=== PATIENT | male | born 1940 | race Caucasian/White ===

== ENCOUNTER 2020-07-23 10:55 | Observation (INO) | payer MEDICARE ==
[2020-07-23] MEDS ORDERED: Sodium Chloride 0.9% 2.5 ML Syringe FLUSH PRN (10:57)
[2020-07-23] MEDS ORDERED: Sodium Chloride 0.9% 10 ML Syringe FLUSH PRN (10:57)
--- NOTE | 2020-07-23 11:01 | EDM.PDOC ---
ED HPI GENERAL MEDICAL PROBLEM - General Chief Complaint: Neuro Symptoms/Deficits Stated Complaint: EMS ARRIVAL Time Seen by Provider: 07/23/20 10:56 Source of Information: Reports: Patient, EMS History Limitations: Reports: No Limitations - History of Present Illness INITIAL COMMENTS - FREE TEXT/NARRATIVE: History of present illness: [Patient is 80-year-old male presents by EMS for concern of possible stroke/TIA. Patient states that when he woke up this morning he was feeling fine around 9 AM he got up from his chair to walk towards the kitchen and he felt very imbalanced, he got to the kitchen and sat down and took a drink of water, thought he was feeling better, tried to continue with his morning and then felt like he had slurred speech and right-sided weakness including a little bit of right facial droop right arm and right leg weakness. He estimates the symptoms lasted about 10 minutes and then resolve spontaneously. He has no previous history of stroke or TIA. States that he has a history of previous kidney cancer status post resection, neck cancer in remission, lung cancer also in remission. Denies chest pain or shortness of breath. Denies fever chills. Denies headache or blurry vision. Denies any new medications or drug use. States he is currently asymptomatic and back to baseline.] Review of systems: As per history of present illness and below otherwise all systems reviewed and negative. Past medical history: As per history of present illness and as reviewed below otherwise noncontributory. Surgical history: As per history of present illness and as reviewed below otherwise noncontributory. Social history: No reported history of drug or alcohol abuse. Family history: As per history of present illness and as reviewed below otherwise noncontributory. Physical exam: General: Awake, alert, no acute distress, A&O X3. HEENT: Atraumatic, normocephalic, pupils reactive, negative for conjunctival pallor or scleral icterus, mucous membranes moist, throat clear, neck supple, nontender, trachea midline. Lungs: Clear to auscultation, breath sounds equal bilaterally, chest nontender. Heart: RRR, normal S1S2, no JVD. Abdomen: Soft, nondistended, nontender. Negative for masses or hepatosplenomegaly. Negative for costovertebral tenderness. Pelvis: Stable nontender. Genitourinary: Deferred. Rectal: Deferred. Extremities: Atraumatic, no edema, Neurovascular unremarkable. Neuro: Motor and sensory grossly intact throughout. Exam nonfocal. NIH 0. Diagnostics: [] Therapeutics: [] Impression: [] Plan: [] Definitive disposition and diagnosis as appropriate pending reevaluation and review of above. - Related Data Allergies Allergy/AdvReac Type Severity Reaction Status Date / Time meperidine [From Demerol] Allergy Other Verified 07/23/20 16:08 Home Meds: Home Meds Glucosam/Chond/Collagen/Hyalur [Glucosamine Chondroitin] 1 tab PO BID 07/23/20 [History] Multivit-Min/Folic/Vit K/Lycop [Men's Multivitamin Tablet] 1 each PO BEDTIME 07/23/20 [History] PARoxetine [Paxil] 20 mg PO DAILY 07/23/20 [History] atorvaSTATin Calcium [Atorvastatin Calcium] 40 mg PO DAILY 07/23/20 [History] ED ROS GENERAL - Review of Systems Review Of Systems: Comprehensive ROS is negative, except as noted in HPI. ED EXAM, NEURO - Physical Exam Exam: See Below (see h and p) #1 Interpretation EKG Date: 07/23/20 Time: 11:08 Rhythm: NSR Rate (Beats/Min): 73 [place]: Normal P-Wave: Present QRS: Normal ST-T: Normal QT: Normal RI/PQ Interval: 1st degree av block Course - Vital Signs Last Recorded V/S: Last Vital Signs Temp 36.4 C 07/23/20 16:04 Pulse 73 07/23/20 16:04 Resp 14 07/23/20 16:04 BP 167/73 H 07/23/20 16:04 Pulse Ox 96 07/23/20 16:04 - Orders/Labs/Meds Orders: Active Orders 24 hr Category Date Time Status Patient Status [ADT] Routine ADT 07/23/20 12:37 Active Sodium Chloride 0.9% [Saline Flush] Med 07/23/20 10:57 Active 10 ml FLUSH ASDIRECTED PRN Sodium Chloride 0.9% [Saline Flush] Med 07/23/20 10:57 Active 2.5 ml FLUSH ASDIRECTED PRN Saline Lock Insert [OM.PC] Stat Oth 07/23/20 10:57 Ordered Medication Orders Sodium Chloride (Saline Flush) 10 ml FLUSH ASDIRECTED PRN PRN Reason: Keep Vein Open Sodium Chloride (Saline Flush) 2.5 ml FLUSH ASDIRECTED PRN PRN Reason: Keep Vein Open Labs: Laboratory Tests 07/23/20 07/23/20 07/23/20 Range/Units 11:16 11:16 11:16 WBC 6.83 (4.0-11.0) K/uL RBC 4.81 (4.50-5.90) M/uL Hgb 15.0 (13.0-17.0) g/dL Hct 45.3 (38.0-50.0) % MCV 94.2 (80.0-98.0) fL MCH 31.2 (27.0-32.0) pg MCHC 33.1 (31.0-37.0) g/dL RDW Std Deviation 48.4 (28.0-62.0) fl RDW Coeff of Thony 14 (11.0-15.0) % Plt Count 220 (150-400) K/uL MPV 10.90 (7.40-12.00) fL Neut % (Auto) 73.9 (48.0-80.0) % Lymph % (Auto) 16.5 (16.0-40.0) % [place] % (Auto) 9.2 (0.0-15.0) % Eos % (Auto) 0.3 (0.0-7.0) % Baso % (Auto) 0.1 (0.0-1.5) % Neut # (Auto) 5.0 (1.4-5.7) K/uL Lymph # (Auto) 1.1 (0.6-2.4) K/uL [place] # (Auto) 0.6 (0.0-0.8) K/uL Eos # (Auto) 0.0 (0.0-0.7) K/uL Baso # (Auto) 0.0 (0.0-0.1) K/uL Nucleated RBC % 0.0 /100WBC Nucleated RBCs # 0 K/uL INR 1.01 APTT 27.2 (18.6-31.3) SEC Sodium 142 (136-148) mmol/L Potassium 4.5 (3.5-5.1) mmol/L Chloride 108 H (98-107) mmol/L Carbon Dioxide 24.4 (21.0-32.0) mmol/L BUN 19 H (7.0-18.0) mg/dL Creatinine 1.2 (0.8-1.3) mg/dL Est Cr Clr Drug Dosing 59.66 mL/min Estimated GFR (MDRD) 58.4 ml/min Glucose 112 H (74-106) mg/dL Calcium 9.2 (8.5-10.1) mg/dL Total Bilirubin 0.7 (0.2-1.0) mg/dL AST 22 (15-37) IU/L ALT 29 (14-63) IU/L Alkaline Phosphatase 119 H (46-116) U/L Troponin I < 0.050 (0.000-0.056) ng/mL Total Protein 7.4 (6.4-8.2) g/dL Albumin 3.6 (3.4-5.0) g/dL Globulin 3.8 (2.6-4.0) g/dL Albumin/Globulin Ratio 0.9 (0.9-1.6) Meds: Medications Generic Name Dose Route Start Last Admin Trade Name Freq PRN Reason Stop Dose Admin Sodium Chloride 10 ml 07/23/20 10:57 Saline Flush FLUSH ASDIRECTED PRN Keep Vein Open Sodium Chloride 2.5 ml 07/23/20 10:57 Saline Flush FLUSH ASDIRECTED PRN Keep Vein Open Discontinued Medications Generic Name Dose Route Start Last Admin Trade Name Freq PRN Reason Stop Dose Admin Aspirin 325 mg 07/23/20 12:33 07/23/20 13:35 Aspirin PO 07/23/20 12:34 325 mg ONETIME ONE Administration Iopamidol 100 ml 07/23/20 11:43 07/23/20 11:45 Isovue Multipack-370 (76%) IVPUSH 07/23/20 11:44 100 ml ONETIME ONE Administration Departure - Departure Time of Disposition: 14:00 Disposition: Admitted As Inpatient 67 Condition: Good Clinical Impression: TIA (transient ischemic attack) - Discharge Information Sepsis Event Note (ED) - Focused Exam Vital Signs: Vital Signs Temp Pulse Resp BP Pulse Ox 07/23/20 12:30 79 18 154/79 H 95 07/23/20 11:30 74 17 154/79 H 95 07/23/20 11:01 36.7 C 76 16 148/123 H 97 - My Orders Last 24 Hours: My Active Orders 07/23/20 10:57 Sodium Chloride 0.9% [Saline Flush] 10 ml FLUSH ASDIRECTED PRN Sodium Chloride 0.9% [Saline Flush] 2.5 ml FLUSH ASDIRECTED PRN Saline Lock Insert [OM.PC] Stat 07/23/20 12:37 Patient Status [ADT] Routine - Assessment/Plan Last 24 Hours: My Active Orders 07/23/20 10:57 Sodium Chloride 0.9% [Saline Flush] 10 ml FLUSH ASDIRECTED PRN Sodium Chloride 0.9% [Saline Flush] 2.5 ml FLUSH ASDIRECTED PRN Saline Lock Insert [OM.PC] Stat 07/23/20 12:37 Patient Status [ADT] Routine Assessment:: Patient has remained asymptomatic since arrival here. CT of the head including CTA of head and neck as well are negative for any acute signs of stroke or blockage. Patient will be admitted, received aspirin here in the ER, will likely have neurology consult in the morning and potentially MRI tomorrow. Symptoms appear to be consistent with TIA. They lasted 10 minutes, resolved spontaneously, he has been asymptomatic since. Covid negative, remainder the labs are reassuring. Stable at time of admission
[2020-07-23] MEDS ORDERED: Iopamidol 755 MG/ML 500 ML Multipack Bottle IVPUSH ONE (11:43)
[2020-07-23 11:45] LABS: BLOOD UREA NITROGEN,BUN 19 mg/dL (7.0-18.0); CARBON DIOXIDE,CO2 24.4 mmol/L (21.0-32.0); CHLORIDE,CL 108 mmol/L (98-107); GLUCOSE RANDOM 112 mg/dL (74-106); POTASSIUM,K 4.5 mmol/L (3.5-5.1); SODIUM,NA 142 mmol/L (136-148)
--- NOTE | 2020-07-23 12:18 | CR ---
INDICATION: Stroke symptoms. TECHNIQUE: AP portable chest. COMPARISON : None. FINDINGS: Shallow inspiration. Curvilinear opacity left upper lobe laterally. This may reflect fibrosis or atelectasis in the proper setting but will require followup to complete radiographic resolution. Clear right lung. Overall heart size is normal. The included skeleton is unremarkable. IMPRESSION: Curvilinear opacity left upper lobe for which radiographic follow-up is recommended when the clinical picture allows. No evidence for pneumothorax or congestive heart failure. Dictated by Gregg Montanez MD @ Jul 23 2020 12:15PM Signed by Dr. Gregg Montanez @ Jul 23 2020 12:16PM
--- NOTE | 2020-07-23 12:20 | CT ---
DATE: 07/23/2020. CLINICAL HISTORY: Patient with acute neurological deficit. TECHNIQUE: Standard helical CT image acquisition through the head and neck was performed after intravenous contrast bolus enhancement. Multiplanar reconstructed images were performed and interpreted. COMPARISON: None available. FINDINGS: The origins of the great vessels from the aortic arch are patent. The origins of the right and left vertebral arteries are patent. The common carotid arteries are patent. There is calcified and noncalcified atherosclerotic plaque involving the carotid bifurcations and extending into the carotid bulbs bilaterally with resulting moderate luminal stenosis of the proximal right internal carotid artery (50-60 percent stenosis by NASCET criteria) and mild luminal stenosis of the proximal left internal carotid artery (less than 50 percent stenosis by NASCET criteria). Note is made of dilatation of the right greater than left carotid bulbs, measuring up to 15 mm in luminal diameter on the right and likely related to prior endarterectomy. The rest of the cervical segments of the internal carotid arteries are patent up to their intracranial segments. 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 The intracranial segments of the internal carotid arteries are patent, noting marked atherosclerotic calcification throughout the cavernous and supraclinoid segments with resulting very mild luminal stenosis of the supraclinoid internal carotid arteries bilaterally. 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 The anterior and middle cerebral arteries are patent. The vertebral arteries are codominant. The cervical segments of the vertebral arteries are patent. The intracranial segments of the vertebral arteries are patent, noting calcified and noncalcified atherosclerotic plaque involving the intracranial left vertebral artery but without resulting flow-limiting luminal stenosis. The basilar trunk and posterior cerebral arteries are patent. Moderate short segment luminal stenosis of the mid to distal basilar trunk secondary to noncalcified atherosclerotic plaque. There is normal opacification of major intracranial venous structures. The visualized lung apices are unremarkable The thyroid gland is unremarkable. There are degenerative changes in the cervical spine. IMPRESSION: 1. Multifocal intracranial atherosclerotic disease, involving both the anterior and posterior circulation, may most pronounced involving the mid distal basilar trunk with moderate luminal stenosis. 2. Findings suggestive of prior right carotid endarterectomy and possibly left carotid endarterectomy with atherosclerosis resulting in moderate luminal stenosis of the proximal right internal carotid artery (50-60 percent stenosis by NASCET criteria) and mild luminal stenosis of the proximal left internal carotid artery (less than 50 percent stenosis by NASCET criteria). 3. 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 Our Neurointerventional Service at [facility] would be happy to enroll this patient in our aneurysm surveillance program. Please call [phone] to arrange for a telehealth consultation. Please note that all CT scans at this facility use dose modulation, iterative reconstruction, and/or weight-based dosing when appropriate to reduce radiation dose to as low as reasonably achievable. Dictated by Gilmer Vuong MD @ Jul 23 2020 3:27PM Signed by Dr. Gilmer Vuong @ Jul 23 2020 3:43PM
--- NOTE | 2020-07-23 12:22 | CT ---
INDICATION: Stroke-like symptoms. TECHNIQUE: CT of the head without contrast. Coronal and sagittal reformats are included. COMPARISON: None. FINDINGS: No CT evidence of acute cortical infarct. No loss of kline white matter differentiation. No hyperdense vessels to suggest intracranial thrombus. No acute intracranial hemorrhage. No mass effect or midline shift. No hydrocephalus or extra-axial collections. Mild to moderate generalized parenchymal volume loss. Patchy white matter hypoattenuation most likely reflects chronic microvascular ischemic changes. Small chronic lacunar infarcts within the bilateral basal ganglia. No acute osseous abnormalities. Mastoid air cells and paranasal sinuses are clear. Normal soft tissues. IMPRESSION: 1. No CT evidence of acute cortical infarct. No acute intracranial hemorrhage. No other acute intracranial findings. 2. Chronic atrophic/age-related changes. Please note that all CT scans at this facility use dose modulation, iterative reconstruction, and/or weight-based dosing when appropriate to reduce radiation dose to as low as reasonably achievable. Dictated by Isaiah Arenas MD @ Jul 23 2020 12:10PM Signed by Dr. Isaiah Arenas @ Jul 23 2020 12:21PM
[2020-07-23] MEDS ORDERED: Aspirin 325 MG Tab PO ONE (12:33)
[2020-07-23] MEDS ORDERED: Ondansetron 4 MG Tab.DIS PO PRN (17:39)
[2020-07-23] MEDS ORDERED: Acetaminophen 325 MG Tab PO PRN (17:39)
[2020-07-23] MEDS ORDERED: atorvaSTATin 40 MG Tab PO ONE (17:53)
[2020-07-23] MEDS ORDERED: Enoxaparin 40 MG/0.4 ML Syringe SUBCUT SCH (18:00)
[2020-07-23 18:18] LABS: HEMOGLOBIN A1C 6.1 % (4.5-6.2)
--- NOTE | 2020-07-23 18:24 | PCM.HP.2 ---
<Jane Dominguez - Last Filed: 07/23/20 18:24> H&P History of Present Illness - General Date of Service: 07/23/20 Admit Problem/Dx: Admission Diagnosis/Problem Admission Diagnosis/Problem TIA, Transient ischemic attack Source of Information: Patient History Limitations: Reports: No Limitations - History of Present Illness Initial Comments - Free Text/Narative: Patient is 80-year-old Gentleman who presented via EMS for concern of possible stroke/TIA. Patient shared that at around 9 AM this morning he got up from his chair to walk towards the kitchen and he felt imbalanced. At this time he felt weakness in the right side of his face, right arm and leg. During this time he recalls feeling an onset of headache behind his left eye, along with some s lurring in his speech. He denies having had this before, states the episode last approx 10 minutes and then spontaneously resolved. He did not try taking anything for symptom relief and denies any alleviating or aggravating factors. 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 States that he has a history of previous kidney cancer status post resection, neck cancer in remission, lung cancer also in remission. Denies chest pain or shortness of breath. Denies fever chills. Denies headache or blurry vision. Denies any new medications or drug use. States he is currently asymptomatic and back to baseline.] Onset of Symptoms: Reports: Today Duration of Symptoms: Reports: Minutes:, Resolved Prior to Arrival Location: Reports: Head, Upper Extremity, Right, Lower Extremity, Right Severity: Mild Improves with: Reports: None Worsens with: Reports: None Context: Denies: Sick Contact, Travel Associated Symptoms: Reports: Headaches (headache for 10 minutes during episode behind left eye) - Related Data Allergies/Adverse Reactions: Allergies Allergy/AdvReac Type Severity Reaction Status Date / Time meperidine [From Demerol] Allergy Other Verified 07/23/20 16:08 Home Medications: Home Meds Glucosam/Chond/Collagen/Hyalur [Glucosamine Chondroitin] 1 tab PO BID 07/23/20 [History] Multivit-Min/Folic/Vit K/Lycop [Men's Multivitamin Tablet] 1 each PO BEDTIME 1 09/22/19 [History] PARoxetine [Paxil] 20 mg PO DAILY 07/23/20 [History] Acetaminophen [Tylenol] 650 mg PO Q4H PRN tablet 07/24/20 [Rx] Aspirin [Halfprin] 81 mg PO DAILY 30 Days #30 tab.ec 07/24/20 [Rx] amLODIPine [Norvasc] 5 mg PO DAILY 30 Days #30 tablet 07/24/20 [Rx] atorvaSTATin [Lipitor] 80 mg PO DAILY 30 Days #30 tablet 07/24/20 [Rx] Past Medical History Oncologic (Cancer) History: Reports: Lung, Other (See Below) Other Oncologic History: Throat, kidney. CLL - Past Surgical History HEENT Surgical History: Reports: Oral Surgery Other HEENT Surgeries/Procedures: Radiation, chemotherapy, throat cancer. Other Respiratory Surgeries/Procedures: Lung Cancer with radiation. GI Surgical History: Reports: Appendectomy Other Male Surgeries/Procedures: Right kidney removal. Other Oncologic Surgeries/Procedures: CLL cancer Social & Family History - Family History Family Medical History: No Pertinent Family History - Tobacco Use Tobacco Use Status *Q: Never Tobacco User Used Tobacco, but Quit: Yes Month/Year Tobacco Last Used: 1989 Second Hand Smoke Exposure: No - Caffeine Use Caffeine Use: Reports: Coffee - Recreational Drug Use Recreational Drug Use: No H&P Review of Systems - Review of Systems: Review Of Systems: Comprehensive ROS is negative, except as noted in HPI. General: Reports: No Symptoms HEENT: Reports: No Symptoms Pulmonary: Reports: No Symptoms Cardiovascular: Reports: No Symptoms Gastrointestinal: Reports: No Symptoms Genitourinary: Reports: No Symptoms Musculoskeletal: Reports: No Symptoms Skin: Reports: No Symptoms Psychiatric: Reports: No Symptoms Neurological: Reports: No Symptoms Hematologic/Lymphatic: Reports: No Symptoms Exam - Exam Exam: See Below - Vital Signs Vital Signs: Last Vital Signs Temp 97.6 F 07/23/20 16:04 Pulse 73 07/23/20 16:04 Resp 14 07/23/20 16:04 BP 167/73 H 07/23/20 16:04 Pulse Ox 96 07/23/20 16:04 Weight: 105.778 kg - Exam General: Alert, Oriented, Cooperative HEENT: Conjunctiva Clear, EOMI, Hearing Intact, Mucosa Moist & [place], Pupils Equal, Pupils Reactive, PERRLA Neck: Supple, Trachea Midline, JVD. No: Lymphadenopathy Lungs: Clear to Auscultation, Normal Respiratory Effort Cardiovascular: Regular Rate, Regular Rhythm, Normal S1, Normal S2 GI/Abdominal Exam: Normal Bowel Sounds, Soft, Non-Tender, No Organomegaly, No Distention, No Abnormal Bruit, No Mass Extremities: Normal Inspection, Normal Range of Motion, No Pedal Edema, Normal Capillary Refill Peripheral Pulses: 2+: Radial (L), Radial (R), Dorsalis Pedis (L), Dorsalis Pedis (R) Skin: Warm, Dry, Intact Neurological: Cranial Nerves Intact, Reflexes Equal Bilateral, Strength Equal Bilateral, Normal Speech, Normal Tone, Sensation Intact. No: Focal Deficit, Babinski, Hyperreflexia, Hyporeflexia, Clonus Neuro Extensive - Mental Status: Alert, Oriented x3, Normal Mood/Affect, Normal Cognition, Memory Intact Neuro Extensive - Motor, Sensory, Reflexes: CN II-XII Intact, Normal Gait, Normal Reflexes. No: Ataxia, Tongue Deviation (L), Tongue Deviation (R), Dy sarthria, Receptive Aphasia, Expressive Aphasia, Total Aphasia, Facial palsy (L), Facial Palsy (R), Facial Palsy w Forehead, Hemeplagia (R), Hemeplagia (L), Pronator Drift (R), Pronator Drift (L), Abnormal Romberg, Abnormal Finger to Nose, Abnormal Heel to Pérez, Abnormal Light Touch, Abnormal Motor, Abnormal Pin Prick, Abn 2 Pt Discrimination, Tremor DTR: 2+: Bicep (L), Bicep (R), Tricep (L), Tricep (R), Patella (L), Patella (R), Achilles (L), Achilles (R) Psychiatric: Alert, Normal Affect, Normal Mood - Patient Data Lab Results Last 24 hrs: Laboratory Results - last 24 hr 07/23/20 07/23/20 07/23/20 Range/Units 11:16 11:16 11:16 WBC 6.83 (4.0-11.0) K/uL RBC 4.81 (4.50-5.90) M/uL Hgb 15.0 (13.0-17.0) g/dL Hct 45.3 (38.0-50.0) % MCV 94.2 (80.0-98.0) fL MCH 31.2 (27.0-32.0) pg MCHC 33.1 (31.0-37.0) g/dL RDW Std Deviation 48.4 (28.0-62.0) fl RDW Coeff of Thony 14 (11.0-15.0) % Plt Count 220 (150-400) K/uL MPV 10.90 (7.40-12.00) fL Neut % (Auto) 73.9 (48.0-80.0) % Lymph % (Auto) 16.5 (16.0-40.0) % Sullivan % (Auto) 9.2 (0.0-15.0) % Eos % (Auto) 0.3 (0.0-7.0) % Baso % (Auto) 0.1 (0.0-1.5) % Neut # (Auto) 5.0 (1.4-5.7) K/uL Lymph # (Auto) 1.1 (0.6-2.4) K/uL Sullivan # (Auto) 0.6 (0.0-0.8) K/uL Eos # (Auto) 0.0 (0.0-0.7) K/uL Baso # (Auto) 0.0 (0.0-0.1) K/uL Nucleated RBC % 0.0 /100WBC Nucleated RBCs # 0 K/uL INR 1.01 APTT 27.2 (18.6-31.3) SEC Sodium 142 (136-148) mmol/L Potassium 4.5 (3.5-5.1) mmol/L Chloride 108 H (98-107) mmol/L Carbon Dioxide 24.4 (21.0-32.0) mmol/L BUN 19 H (7.0-18.0) mg/dL Creatinine 1.2 (0.8-1.3) mg/dL Est Cr Clr Drug Dosing 59.66 mL/min Estimated GFR (MDRD) 58.4 ml/min Glucose 112 H (74-106) mg/dL Calcium 9.2 (8.5-10.1) mg/dL Total Bilirubin 0.7 (0.2-1.0) mg/dL AST 22 (15-37) IU/L ALT 29 (14-63) IU/L Alkaline Phosphatase 119 H (46-116) U/L Troponin I < 0.050 (0.000-0.056) ng/mL Total Protein 7.4 (6.4-8.2) g/dL Albumin 3.6 (3.4-5.0) g/dL Globulin 3.8 (2.6-4.0) g/dL Albumin/Globulin Ratio 0.9 (0.9-1.6) SARS-CoV-2 RNA (MONALISA) (NEGATIVE) 07/23/20 Range/Units 13:20 WBC (4.0-11.0) K/uL RBC (4.50-5.90) M/uL Hgb (13.0-17.0) g/dL Hct (38.0-50.0) % MCV (80.0-98.0) fL MCH (27.0-32.0) pg MCHC (31.0-37.0) g/dL RDW Std Deviation (28.0-62.0) fl RDW Coeff of Thony (11.0-15.0) % Plt Count (150-400) K/uL MPV (7.40-12.00) fL Neut % (Auto) (48.0-80.0) % Lymph % (Auto) (16.0-40.0) % Sullivan % (Auto) (0.0-15.0) % Eos % (Auto) (0.0-7.0) % Baso % (Auto) (0.0-1.5) % Neut # (Auto) (1.4-5.7) K/uL Lymph # (Auto) (0.6-2.4) K/uL Sullivan # (Auto) (0.0-0.8) K/uL Eos # (Auto) (0.0-0.7) K/uL Baso # (Auto) (0.0-0.1) K/uL Nucleated RBC % /100WBC Nucleated RBCs # K/uL INR APTT (18.6-31.3) SEC Sodium (136-148) mmol/L Potassium (3.5-5.1) mmol/L Chloride (98-107) mmol/L Carbon Dioxide (21.0-32.0) mmol/L BUN (7.0-18.0) mg/dL Creatinine (0.8-1.3) mg/dL Est Cr Clr Drug Dosing mL/min Estimated GFR (MDRD) ml/min Glucose (74-106) mg/dL Calcium (8.5-10.1) mg/dL Total Bilirubin (0.2-1.0) mg/dL AST (15-37) IU/L ALT (14-63) IU/L Alkaline Phosphatase (46-116) U/L Troponin I (0.000-0.056) ng/mL Total Protein (6.4-8.2) g/dL Albumin (3.4-5.0) g/dL Globulin (2.6-4.0) g/dL Albumin/Globulin Ratio (0.9-1.6) SARS-CoV-2 RNA (MONALISA) NEGATIVE (NEGATIVE) Result Diagrams: 07/23/20 11:16 07/23/20 11:16 Sepsis Event Note - Evaluation Sepsis Screening Result: No Definite Risk - Focused Exam Vital Signs: Vital Signs Temp Pulse Resp BP Pulse Ox 07/23/20 16:04 97.6 F 73 14 167/73 H 96 07/23/20 15:15 77 17 120/61 94 L 07/23/20 14:45 77 17 140/76 94 L 07/23/20 12:30 79 18 154/79 H 95 07/23/20 11:30 74 17 154/79 H 95 07/23/20 11:01 98.1 F 76 16 148/123 H 97 - Problem List (1) TIA (transient ischemic attack) SNOMED Code(s): 519288699 ICD Code: G45.9 - TRANSIENT CEREBRAL ISCHEMIC ATTACK, UNSPECIFIED Status: Acute Problem List Initiated/Reviewed/Updated: Yes Orders Last 24hrs: Active Orders 24 hr Category Date Time Status Patient Status [ADT] Routine ADT 07/23/20 12:37 Active Neuro Check [RC] Q4HR Care 07/23/20 18:10 Ordered Oxygen Therapy [RC] PRN Care 07/23/20 17:37 Active Oxygen Therapy [RC] PRN Care 07/23/20 17:45 Active VTE/DVT Education [RC] PER UNIT ROUTINE Care 07/23/20 17:37 Active VTE/DVT Education [RC] PER UNIT ROUTINE Care 07/23/20 17:45 Active Vital Signs [RC] Q4H Care 07/23/20 17:37 Active Vital Signs [RC] Q4H Care 07/23/20 17:45 Active Heart Healthy Diet [DIET] Diet 07/23/20 Dinner Active CBC WITH AUTO DIFF [HEME] AM Lab 07/24/20 05:11 Ordered CBC WITH AUTO DIFF [HEME] AM Lab 07/25/20 05:11 Ordered CBC WITH AUTO DIFF [HEME] AM Lab 07/26/20 05:11 Ordered CBC WITH AUTO DIFF [HEME] AM Lab 07/27/20 05:11 Ordered COMPREHENSIVE METABOLIC PN,CMP [CHEM] AM Lab 07/24/20 05:11 Ordered COMPREHENSIVE METABOLIC PN,CMP [CHEM] AM Lab 07/25/20 05:11 Ordered COMPREHENSIVE METABOLIC PN,CMP [CHEM] AM Lab 07/26/20 05:11 Ordered COMPREHENSIVE METABOLIC PN,CMP [CHEM] AM Lab 07/27/20 05:11 Ordered GLYCOSYLATED HEMOGLOBIN,HGBA1C [CHEM] Routine Lab 07/23/20 11:16 Received LIPID PANEL [CHEM] AM Lab 07/24/20 05:11 Ordered MAGNESIUM [CHEM] AM Lab 07/24/20 05:11 Ordered PHOSPHORUS [CHEM] AM Lab 07/24/20 05:11 Ordered UA RFX WILLOW AND CULT IF INDIC [URIN] Urgent Lab 07/23/20 17:39 Ordered Acetaminophen [TylenoL] Med 07/23/20 17:39 Active 650 mg PO Q4H PRN Aspirin [Halfprin] Med 07/24/20 09:00 Active 81 mg PO DAILY Ondansetron [Zofran ODT] Med 07/23/20 17:39 Active 4 mg PO Q4H PRN PARoxetine [Paxil] Med 07/24/20 09:00 Pending 20 mg PO DAILY Sodium Chloride 0.9% [Saline Flush] Med 07/23/20 10:57 Active 10 ml FLUSH ASDIRECTED PRN Sodium Chloride 0.9% [Saline Flush] Med 07/23/20 10:57 Active 2.5 ml FLUSH ASDIRECTED PRN atorvaSTATin [Lipitor] Med 07/24/20 09:00 Ordered 80 mg PO DAILY Saline Lock Insert [OM.PC] Stat Oth 07/23/20 10:57 Ordered Resuscitation Status Routine Resus Stat 07/23/20 17:37 Ordered Medication Orders Acetaminophen (Tylenol) 650 mg PO Q4H PRN PRN Reason: Pain (Mild 1-3)/fever Aspirin (Halfprin) 81 mg PO DAILY MARIANN Atorvastatin Calcium (Lipitor) 80 mg PO DAILY MARIANN Ondansetron HCl (Zofran Odt) 4 mg PO Q4H PRN PRN Reason: nausea, able to take PO Paroxetine HCl (Paxil) 20 mg PO DAILY MARIANN Sodium Chloride (Saline Flush) 10 ml FLUSH ASDIRECTED PRN PRN Reason: Keep Vein Open Sodium Chloride (Saline Flush) 2.5 ml FLUSH ASDIRECTED PRN PRN Reason: Keep Vein Open Assessment/Plan Comment:: 80 y/o Rosalina with PMHx of various cancers that have been treated, previous Rt sided Endarterectomy, Fam hx of [place] in his sister, and on medication for HLD and depression. Is being treated for TIA. 1.TIA: -given 325 Aspirin in E.R, symptoms resolved, all imaging negative for intracranial hemorrhage/ mass. Will start on 81mg ASA daily, 80mg Atorvastatin daily, and consider HTN medication based on BP monitoring tonight and tomorrow. -CT Head- No acute intracranial hemorrhage, no mass lesion. -CTA Head- multifocal intracranial atherosclerotic disease in both ant/ post circ. Bilaterally noted mild-moderative calcified and noncalcified plaque. Less than 50% stenosis on Left and 50-60% on Rt. 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 Could represent fibrosis or atelectasis. (PLEASE SEE REPORTS FOR FURTHER DETAILS FOR ABOVE IMAGING) Negative EKG -Q4H neuro checks -May Consider echo -Review with neuro tomorrow for outpatient recommendations 2. Inpatient admission for observation 24 hrs, activity up ad elham, HH diet, no PPI/ Lovenox required at this time, may consider if Pt. requires an extended l ength of stay. <Radha Bhakta - Last Filed: 07/26/20 11:29> H&P History of Present Illness - General Admit Problem/Dx: Admission Diagnosis/Problem Admission Diagnosis/Problem TIA, Transient ischemic attack Exam - Vital Signs Vital Signs: Last Vital Signs Temp 36.1 C 07/24/20 12:53 Pulse 67 07/24/20 12:53 Resp 16 07/24/20 12:53 BP 174/83 H 07/24/20 12:53 Pulse Ox 96 07/24/20 12:53 - Patient Data Result Diagrams: 07/24/20 05:40 07/24/20 05:40 Assessment/Plan Comment:: I performed a history and physical exam of the patient and discussed management with resident. I have reviewed the residents note and agree with documented findings and plan unless otherwise specified in my note.
[2020-07-24 06:32] LABS: BLOOD UREA NITROGEN,BUN 15 mg/dL (7.0-18.0); CARBON DIOXIDE,CO2 26.9 mmol/L (21.0-32.0); CHLORIDE,CL 108 mmol/L (98-107); GLUCOSE RANDOM 97 mg/dL (74-106); POTASSIUM,K 4.8 mmol/L (3.5-5.1); SODIUM,NA 140 mmol/L (136-148)
[2020-07-24] MEDS ORDERED: Aspirin 81 MG Tab.EC PO SCH (09:00)
[2020-07-24] MEDS ORDERED: atorvaSTATin 40 MG Tab PO SCH (09:00)
[2020-07-24] MEDS ORDERED: PARoxetine 20 MG Tab PO SCH (09:00)
[2020-07-24] MEDS ORDERED: atorvaSTATin 40 MG Tab PO ONE (10:40)
[2020-07-24] MEDS ORDERED: amLODIPine 5 MG Tab PO SCH (10:45)
[2020-07-24] MEDS ORDERED: Gadobenate Dimeglumine 529 MG/ML 20 ML SDV IVPUSH STA (11:36)
--- NOTE | 2020-07-24 12:42 | MR ---
Indication: CVA Technique: Noncontrast sagittal T1, axial FLAIR, T2 turbo spine echo, SWI, and diffusion weighted images. Supplemental post contrast T1 weighted axial and coronal sequences are provided after administration of 20 mL gadolinium-based IV contrast. Comparison: CT head 07/23/2020 Findings: Moderate parenchymal volume loss. Moderate chronic small vessel white matter ischemic changes. The midline structures are centrally located with no evidence of shift. There are no suspicious intra or extra-axial fluid collections. No evidence of restricted diffusion to suggest acute ischemia. 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 There is a punctate focus of subtly artifact in the right cerebellum consistent with remote microhemorrhage. Expected flow voids in the cavernous carotids and basilar artery. No abnormal contrast enhancement involving the brain parenchyma, meninges, calvarium or skull base. Mild right mastoid effusion. Impression: 1. No evidence of acute intracranial abnormality. 2. Moderate parenchymal volume loss. 3. Moderate chronic small vessel white matter ischemic changes. Dictated by Sung Tucker MD @ Jul 24 2020 12:29PM Signed by Dr. Sung Tucker @ Jul 24 2020 12:40PM
--- NOTE | 2020-07-24 14:00 | PCM.DCSUM1 ---
Discharge Summary - Hospital Course Brief History: Patient is 80-year-old male presents by EMS for concern of possible stroke/TIA. Patient states that when he woke up this morning he was feeling fine around 9 AM he got up from his chair to walk towards the kitchen and he felt very imbalanced, he got to the kitchen and sat down and took a drink of water, thought he was feeling better, tried to continue with his morning and then felt like he had slurred speech and right-sided weakness including a little bit of right facial droop right arm and right leg weakness. He estimates the symptoms lasted about 10 minutes and then resolve spontaneously. He has no previous history of stroke or TIA. States that he has a history of previous kidney cancer status post resection, neck cancer in remission, lung cancer also in remission. Denies chest pain or shortness of breath. Denies fever chills. Denies headache or blurry vision. Denies any new medications or drug use. States he is currently asymptomatic and back to baseline. Diagnosis: Stroke: No Modified [place] Scale: No Symptoms at All Modified [place] Scale Score: 0 - Discharge Data Discharge Date: 07/24/20 Discharge Disposition: Home, Self-Care 01 Condition: Good - Referral to Home Health Primary Care Physician: PCP None - Discharge Diagnosis/Problem(s) (1) TIA (transient ischemic attack) SNOMED Code(s): 922737824 ICD Code: G45.9 - TRANSIENT CEREBRAL ISCHEMIC ATTACK, UNSPECIFIED Status: Acute Current Visit: Yes - Patient Summary/Data Hospital Course: Had weakness, imbalance, and slurred speech for 10 minutes yesterday morning. Was worked up for stroke, found to have had a TIA. Per recomednations started on ASA 81, increased Atorvastatin, and started on antihypertensive amlodipine 5 mg. was consulted for reccomendations suggesting sending pt home with Zio Patch and close follow up as outpt. Pt completed echo and MRI prior to discharge. 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 - Patient Instructions Diet: Heart Healthy Diet Activity: As Tolerated Other/Special Instructions: Please return to hospital in the event you develop numbness, tingling, weakness, visual changes, severe headache, difficulty with balance, speech, difficulty with motion, or sensing things. - Discharge Plan *PRESCRIPTION DRUG MONITORING PROGRAM REVIEWED*: Not Applicable *COPY OF PRESCRIPTION DRUG MONITORING REPORT IN PATIENT MANGO: Not Applicable Prescriptions/Med Rec: Aspirin [Halfprin] 81 mg PO DAILY 30 Days #30 tab.ec atorvaSTATin [Lipitor] 80 mg PO DAILY 30 Days #30 tablet amLODIPine [Norvasc] 5 mg PO DAILY 30 Days #30 tablet Home Medications: Home Meds Glucosam/Chond/Collagen/Hyalur [Glucosamine Chondroitin] 1 tab PO BID 07/23/20 [History] Multivit-Min/Folic/Vit K/Lycop [Men's Multivitamin Tablet] 1 each PO BEDTIME 07/23/20 [History] PARoxetine [Paxil] 20 mg PO DAILY 07/23/20 [History] Acetaminophen [Tylenol] 650 mg PO Q4H PRN tablet 07/24/20 [Rx] Aspirin [Halfprin] 81 mg PO DAILY 30 Days #30 tab.ec 07/24/20 [Rx] amLODIPine [Norvasc] 5 mg PO DAILY 30 Days #30 tablet 07/24/20 [Rx] atorvaSTATin [Lipitor] 80 mg PO DAILY 30 Days #30 tablet 07/24/20 [Rx] Referrals: Rosaline Machado NP [Nurse Practitioner] - 07/31/20 3:15 pm - Discharge Summary/Plan Comment DC Time >30 min.: No - Patient Data Vitals - Most Recent: Last Vital Signs Temp 96.9 F 07/24/20 12:53 Pulse 67 07/24/20 12:53 Resp 16 07/24/20 12:53 BP 174/83 H 07/24/20 12:53 Pulse Ox 96 07/24/20 12:53 Weight - Most Recent: 233 lb 3.2 oz I&O - Last 24 hours: Intake & Output 07/23/20 07/24/20 07/24/20 22:59 06:59 14:59 Intake Total 850 Balance 850 Lab Results - Last 24 hrs: Laboratory Results - last 24 hr 07/23/20 07/23/20 07/24/20 Range/Units 11:16 13:20 05:40 WBC 7.20 (4.0-11.0) K/uL RBC 4.84 (4.50-5.90) M/uL Hgb 14.7 (13.0-17.0) g/dL Hct 45.8 (38.0-50.0) % MCV 94.6 (80.0-98.0) fL MCH 30.4 (27.0-32.0) pg MCHC 32.1 (31.0-37.0) g/dL RDW Std Deviation 48.2 (28.0-62.0) fl RDW Coeff of Thony 14 (11.0-15.0) % Plt Count 219 (150-400) K/uL MPV 11.10 (7.40-12.00) fL Neut % (Auto) 61.2 (48.0-80.0) % Lymph % (Auto) 24.6 (16.0-40.0) % [place] % (Auto) 12.4 (0.0-15.0) % Eos % (Auto) 1.7 (0.0-7.0) % Baso % (Auto) 0.1 (0.0-1.5) % Neut # (Auto) 4.4 (1.4-5.7) K/uL Lymph # (Auto) 1.8 (0.6-2.4) K/uL [place] # (Auto) 0.9 H (0.0-0.8) K/uL Eos # (Auto) 0.1 (0.0-0.7) K/uL Baso # (Auto) 0.0 (0.0-0.1) K/uL Nucleated RBC % 0.0 /100WBC Nucleated RBCs # 0 K/uL Sodium (136-148) mmol/L Potassium (3.5-5.1) mmol/L Chloride (98-107) mmol/L Carbon Dioxide (21.0-32.0) mmol/L BUN (7.0-18.0) mg/dL Creatinine (0.8-1.3) mg/dL Est Cr Clr Drug Dosing mL/min Estimated GFR (MDRD) ml/min Glucose (74-106) mg/dL Hemoglobin A1c 6.1 (4.5-6.2) % Calcium (8.5-10.1) mg/dL Phosphorus (2.6-4.7) mg/dL Magnesium (1.8-2.4) mg/dL Total Bilirubin (0.2-1.0) mg/dL AST (15-37) IU/L ALT (14-63) IU/L Alkaline Phosphatase (46-116) U/L Total Protein (6.4-8.2) g/dL Albumin (3.4-5.0) g/dL Globulin (2.6-4.0) g/dL Albumin/Globulin Ratio (0.9-1.6) Triglycerides (0-200) mg/dL Cholesterol (50-200) mg/dL LDL Cholesterol, Calc (60-180) mg/dL VLDL Cholesterol (5-55) mg/dL HDL Cholesterol (40-60) mg/dL Cholesterol/HDL Ratio (3.3-6.0) Urine Color Urine Appearance Urine pH (5.0-8.0) Ur Specific [place] (1.001-1.035) Urine Protein (NEGATIVE) mg/dL Urine Glucose (UA) (NEGATIVE) mg/dL Urine Ketones (NEGATIVE) mg/dL Urine Occult Blood (NEGATIVE) Urine Nitrite (NEGATIVE) Urine Bilirubin (NEGATIVE) Urine Urobilinogen (<2.0) EU/dL Ur Leukocyte Esterase (NEGATIVE) Urine RBC (0-2/HPF) Urine WBC (0-5/HPF) Ur Epithelial Cells (NONE-FEW) Urine Bacteria (NEGATIVE) SARS-CoV-2 RNA (MONALISA) NEGATIVE (NEGATIVE) 07/24/20 07/24/20 Range/Units 05:40 07:30 WBC (4.0-11.0) K/uL RBC (4.50-5.90) M/uL Hgb (13.0-17.0) g/dL Hct (38.0-50.0) % MCV (80.0-98.0) fL MCH (27.0-32.0) pg MCHC (31.0-37.0) g/dL RDW Std Deviation (28.0-62.0) fl RDW Coeff of Thony (11.0-15.0) % Plt Count (150-400) K/uL MPV (7.40-12.00) fL Neut % (Auto) (48.0-80.0) % Lymph % (Auto) (16.0-40.0) % [place] % (Auto) (0.0-15.0) % Eos % (Auto) (0.0-7.0) % Baso % (Auto) (0.0-1.5) % Neut # (Auto) (1.4-5.7) K/uL Lymph # (Auto) (0.6-2.4) K/uL [place] # (Auto) (0.0-0.8) K/uL Eos # (Auto) (0.0-0.7) K/uL Baso # (Auto) (0.0-0.1) K/uL Nucleated RBC % /100WBC Nucleated RBCs # K/uL Sodium 140 (136-148) mmol/L Potassium 4.8 (3.5-5.1) mmol/L Chloride 108 H (98-107) mmol/L Carbon Dioxide 26.9 (21.0-32.0) mmol/L BUN 15 (7.0-18.0) mg/dL Creatinine 1.1 (0.8-1.3) mg/dL Est Cr Clr Drug Dosing 63.31 mL/min Estimated GFR (MDRD) > 60.0 ml/min Glucose 97 (74-106) mg/dL Hemoglobin A1c (4.5-6.2) % Calcium 9.0 (8.5-10.1) mg/dL Phosphorus 3.0 (2.6-4.7) mg/dL Magnesium 2.3 (1.8-2.4) mg/dL Total Bilirubin 0.8 (0.2-1.0) mg/dL AST 21 (15-37) IU/L ALT 31 (14-63) IU/L Alkaline Phosphatase 112 (46-116) U/L Total Protein 6.3 L (6.4-8.2) g/dL Albumin 3.3 L (3.4-5.0) g/dL Globulin 3.0 (2.6-4.0) g/dL Albumin/Globulin Ratio 1.1 (0.9-1.6) Triglycerides 123 (0-200) mg/dL Cholesterol 126 (50-200) mg/dL LDL Cholesterol, Calc 64 (60-180) mg/dL VLDL Cholesterol 24 (5-55) mg/dL HDL Cholesterol 37 L (40-60) mg/dL Cholesterol/HDL Ratio 3.4 (3.3-6.0) Urine Color YELLOW Urine Appearance CLEAR Urine pH 6.0 (5.0-8.0) Ur Specific [place] 1.010 (1.001-1.035) Urine Protein NEGATIVE (NEGATIVE) mg/dL Urine Glucose (UA) NEGATIVE (NEGATIVE) mg/dL Urine Ketones NEGATIVE (NEGATIVE) mg/dL Urine Occult Blood TRACE-INTACT H (NEGATIVE) Urine Nitrite NEGATIVE (NEGATIVE) Urine Bilirubin NEGATIVE (NEGATIVE) Urine Urobilinogen 0.2 (<2.0) EU/dL Ur Leukocyte Esterase NEGATIVE (NEGATIVE) Urine RBC 0-2 (0-2/HPF) Urine WBC 0-1 (0-5/HPF) Ur Epithelial Cells RARE (NONE-FEW) Urine Bacteria RARE (NEGATIVE) SARS-CoV-2 RNA (MONALISA) (NEGATIVE) Med Orders - Current: Current Medications Acetaminophen (Tylenol) 650 mg PO Q4H PRN PRN Reason: Pain (Mild 1-3)/fever Amlodipine Besylate (Norvasc) 5 mg PO DAILY [facility] [place] Last Admin: 07/24/20 11:12 Dose: 5 mg Documented by: Aspirin (Halfprin) 81 mg PO DAILY [facility] [place] Last Admin: 07/24/20 09:17 Dose: 81 mg Documented by: Atorvastatin Calcium (Lipitor) 80 mg PO DAILY [facility] [place] Ondansetron HCl (Zofran Odt) 4 mg PO Q4H PRN PRN Reason: nausea, able to take PO Paroxetine HCl (Paxil) 20 mg PO DAILY [facility] [place] Last Admin: 07/24/20 09:17 Dose: 20 mg Documented by: Sodium Chloride (Saline Flush) 10 ml FLUSH ASDIRECTED PRN PRN Reason: Keep Vein Open Sodium Chloride (Saline Flush) 2.5 ml FLUSH ASDIRECTED PRN PRN Reason: Keep Vein Open Discontinued Medications Aspirin (Aspirin) 325 mg PO ONETIME ONE Stop: 07/23/20 12:34 Last Admin: 07/23/20 13:35 Dose: 325 mg Documented by: Atorvastatin Calcium (Lipitor) 80 mg PO ONETIME ONE Stop: 07/23/20 17:54 Last Admin: 07/23/20 18:34 Dose: Not Given Documented by: Atorvastatin Calcium (Lipitor) 40 mg PO DAILY [facility] [place] Last Admin: 07/24/20 09:17 Dose: 40 mg Documented by: Atorvastatin Calcium (Lipitor) 40 mg PO ONETIME ONE Stop: 07/24/20 10:41 Last Admin: 07/24/20 11:16 Dose: 40 mg Documented by: Enoxaparin Sodium (Lovenox) 40 mg SUBCUT Q24H [facility] [place] Last Admin: 07/23/20 18:34 Dose: Not Given Documented by: Gadobenate Dimeglumine (Multihance) 20 ml IVPUSH ONETIME STA Stop: 07/24/20 11:37 Last Admin: 07/24/20 11:37 Dose: 20 ml Documented by: Iopamidol (Isovue Multipack-370 (76%)) 100 ml IVPUSH ONETIME ONE Stop: 07/23/20 11:44 Last Admin: 07/23/20 11:45 Dose: 100 ml Documented by:
[2020-07-25] MEDS ORDERED: atorvaSTATin 40 MG Tab PO SCH (09:00)
--- NOTE | 2020-07-27 10:43 | ECHO ---
EXAM DATE: 07/23/20 PATIENT'S AGE: 80 The ECHO report has been scanned into [employer] [facility] and can be seen in this patient's EMR (Electronic Medical Record) under the REPORTS section. The report has also been scanned into PACS. YOUNG
== END 2020-07-24 16:18 | disposition home or self-care (01) ==
LOC: MW.ED 10:55 → MW.MS 12:37
PROVIDERS: ADMIT Student in an Organized Health Care Education/Training Program; ATTEND Student in an Organized Health Care Education/Training Program
DX: G45.9 Transient cerebral ischemic attack, unspecified (principal); Z79.899 Other long term (current) drug therapy; Z79.82 Long term (current) use of aspirin; Z88.8 Allergy status to other drugs, medicaments and biological substances; Z98.890 Other specified postprocedural states; Z20.828 Contact with and (suspected) exposure to other viral communicable diseases
CPT/HCPCS: 36415; 70450; 70496; 70498; 70553; 71045; 80053; 80061; 81001; 83036; 83735; 84100; 84484; 85025; 85610; 85730; 93005; 93306; 99285; A9270; A9577; G0378; Q9967; U0002

== ENCOUNTER 2021-10-08 11:07 | Emergency (ER) | payer MEDICARE | END 2021-10-08 15:11 | disposition home or self-care (01) | LOC: MW.ED 11:07 | DX: B34.9 Viral infection, unspecified (principal); Z88.5 Allergy status to narcotic agent; Z79.899 Other long term (current) drug therapy; Z79.82 Long term (current) use of aspirin | CPT/HCPCS: 71045; 71045-26; 99283-25 ==